=== PATIENT | female | born 1955 | race Caucasian/White ===

== ENCOUNTER 2020-09-02 09:18 | Observation (INO) ==
[2020-09-02] MEDS ORDERED: *HR* Promethazine 25 MG/ML VIAL IVP ONE (09:50)
[2020-09-02] MEDS ORDERED: 0.9 % Sodium Chloride 1,000 ML IVC ONE (09:50)
[2020-09-02] MEDS ORDERED: *HR* FentaNYL (PF) 100 MCG/2 ML VIAL IVP ONE ×2 (09:54→12:06)
[2020-09-02 10:21] LABS: Basophils % 0.1 %; Eosinophils % 0.1 %; Hematocrit 36.3 % (35.3-44.9); Hemoglobin 12.4 g/dL (11.5-15.4); Immature Granulocytes % 0.3 % (0-4); Lymphocytes # 1.1 K/mcL (0.6-4.6); Lymphocytes % 9.3 %; Mean Corpuscular HGB Conc 34.2 g/dL (31.6-35.5); Mean Corpuscular Hemoglobin 30.4 pg (28.0-33.3); Mean Platelet Volume 9.7 fL (9.4-12.4); Monocytes # 1.3 K/mcL (0.0-1.3); Monocytes % 11.4 %; Neutrophils # 9.2 K/mcL (1.6-8.9); Platelet Count 275 K/mcL (140-400); Red Blood Count 4.08 M/mcL (3.82-4.97); Segmented Neutrophils % 78.8 %; White Blood Count 11.6 K/mcL (4.3-11.1)
[2020-09-02 10:32] LABS: Bacteria,Urine Few per hpf (None-Few); Bilirubin,Urine Negative (Negative); Blood,Urine Small (Negative); Clarity,Urine Clear (Clear); Color,Urine Colorless (Yellow); Glucose,Urine (UA) Normal (Normal); Ketones,Urine 10 mg/dL (Negative); Leukocyte Esterase,Urine Negative (Negative); Nitrite,Urine Negative (Negative); Protein,Urine Negative (Neg-Trace); RBC,Urine 0-3 per hpf (0-3); Urobilinogen,Urine Normal (Normal); WBC,Urine 0-3 per hpf (0-3)
[2020-09-02 10:40] LABS: Alanine Aminotransferase 15 Units/L (7-52); Albumin 4.5 g/dL (3.5-5.7); Albumin/Globulin Ratio 1.8 (1.1-2.2); Alkaline Phosphatase 55 Units/L (34-104); Aspartate Amino Transferase 11 Units/L (13-39); BUN/Creatinine Ratio 16 (6-26); Bilirubin,Direct 0.1 mg/dL (0.0-0.2); Bilirubin,Indirect 0.7 mg/dL (0.0-1.0); Bilirubin,Total 0.8 mg/dL (0.3-1.0); Blood Urea Nitrogen 18 mg/dL (8-23); Calcium 9.9 mg/dL (8.6-10.3); Carbon Dioxide 21 mEq/L (23-29); Chloride 105 mEq/L (98-107); Globulin 2.5 g/dL (2.4-3.5); Glucose 212 mg/dL (70-105); Lipase 13 Units/L (11-82); Osmolality,Calculated 296 (280-300); Potassium 3.7 mEq/L (3.5-5.1); Sodium 139 mEq/L (136-145); eGFR For African Americans > 60 (> 60); eGFR For Non-African Americans 50 (> 60)
[2020-09-02] MEDS ORDERED: Ondansetron 4 MG/2 ML VIAL IVP PRN (12:28)
[2020-09-02] MEDS ORDERED: Acetaminophen 325 MG TABLET PO PRN (12:28)
[2020-09-02] MEDS ORDERED: *HR* FentaNYL (PF) 100 MCG/2 ML VIAL IVP PRN (13:56)
[2020-09-02] MEDS ORDERED: Ringers Solution, Lactated 1,000 ML IVC ONE (13:56)
[2020-09-02] MEDS ORDERED: D5% in Water 1,000 ML IVC PRN (13:57)
[2020-09-02] MEDS ORDERED: Dextrose Gel 15 GM/37.5 ML TUBE PO PRN ×2 (13:57)
[2020-09-02] MEDS ORDERED: *HR* Dextrose 50 % in Water (Vial) 50 ML VIAL IVP PRN (13:57)
[2020-09-02 16:26] LABS: Adenovirus Not Detected (Not Detect); Bordetella Pertussis Not Detected (Not Detect); Chlamydophila pneumoniae Not Detected (Not Detect); Coronavirus 229E Not Detected (Not Detect); Coronavirus HKU1 Not Detected (Not Detect); Coronavirus NL63 Not Detected (Not Detect); Coronavirus OC43 Not Detected (Not Detect); Human Metapneumovirus Not Detected (Not Detect); Human Rhinovirus/Enterovirus Not Detected (Not Detect); Influenza A Subtype 2009 H1 Not Detected (Not Detect); Influenza B Not Detected (Not Detect); Mycoplasma pneumoniae Not Detected (Not Detect); Parainfluenza Virus 1 Not Detected (Not Detect); Parainfluenza Virus 2 Not Detected (Not Detect); Parainfluenza Virus 3 Not Detected (Not Detect); Parainfluenza Virus 4 Not Detected (Not Detect); Respiratory Syncytial Virus Not Detected (Not Detect); SARS-CoV-2 Not Detected (Not Detect)
[2020-09-02] MEDS: *HR* OxyCODONE Immed Rel 5 MG TABLET PO PRN (17:15)
[2020-09-02] MEDS: Insulin LISPRO 300 UNITS/3 ML VIAL SQ SCH (18:23)
[2020-09-02] MEDS: *HR* Promethazine 25 MG/ML VIAL IVP PRN (20:01)
[2020-09-02] MEDS ORDERED: Insulin LISPRO 300 UNITS/3 ML VIAL SQ SCH (21:00)
[2020-09-02] MEDS: cefTRIAXone 1,000 MG in 0.9 % Sodium Chloride Mini Bag 100 ML IVPB SCH (22:28)
[2020-09-03] MEDS: *HR* OxyCODONE Immed Rel 5 MG TABLET PO PRN (02:53)
[2020-09-03] MEDS: *HR* Promethazine 25 MG/ML VIAL IVP PRN (03:29)
[2020-09-03 04:49] LABS: Hematocrit 33.3 % (35.3-44.9); Hemoglobin 10.7 g/dL (11.5-15.4); Mean Corpuscular HGB Conc 32.1 g/dL (31.6-35.5); Mean Corpuscular Volume 93.3 fL (83.0-100.0); Mean Platelet Volume 9.9 fL (9.4-12.4); Platelet Count 240 K/mcL (140-400); Red Blood Count 3.57 M/mcL (3.82-4.97); White Blood Count 9.9 K/mcL (4.3-11.1)
[2020-09-03 05:08] LABS: BUN/Creatinine Ratio 15 (6-26); Blood Urea Nitrogen 15 mg/dL (8-23); Calcium 9.1 mg/dL (8.6-10.3); Carbon Dioxide 22 mEq/L (23-29); Chloride 106 mEq/L (98-107); Glucose 172 mg/dL (70-105); Osmolality,Calculated 291 (280-300); Potassium 3.6 mEq/L (3.5-5.1); Sodium 138 mEq/L (136-145); eGFR For African Americans > 60 (> 60); eGFR For Non-African Americans 57 (> 60)
[2020-09-03] MEDS ORDERED: *HR* Enoxaparin 40 MG/0.4 ML SYRINGE SQ SCH (06:00)
[2020-09-03] MEDS: Insulin LISPRO 300 UNITS/3 ML VIAL SQ SCH (07:30)
[2020-09-03] MEDS: cefTRIAXone 1,000 MG in 0.9 % Sodium Chloride Mini Bag 100 ML IVPB SCH (10:59)
[2020-09-03] MEDS ORDERED: *HR* HYDROmorphone PF 0.5 MG/0.5 ML SYRINGE IVP PRN (11:41)
[2020-09-03] MEDS ORDERED: Acetaminophen IV 1,000 MG/100 ML INFUS..BTL IVPB ONE (12:12)
[2020-09-03] MEDS ORDERED: *HR* Propofol 200 MG/20 ML VIAL IVP ONE (12:17)
[2020-09-03] MEDS ORDERED: *HR* FentaNYL (PF) 100 MCG/2 ML VIAL ONE (12:17)
[2020-09-03] MEDS ORDERED: *HR* Midazolam HCl 2 MG/2 ML VIAL ONE (12:17)
[2020-09-03] MEDS ORDERED: Lidocaine -MPF 2% 2 ML VIAL ONE (12:18)
[2020-09-03] MEDS ORDERED: Ondansetron 4 MG/2 ML VIAL ONE (12:18)
[2020-09-03] MEDS ORDERED: Dexamethasone 4 MG/ML VIAL ONE (12:18)
[2020-09-03] MEDS ORDERED: Isovue-300 50ML VIAL ONE (12:24)
[2020-09-03 13:41] VITALS: BP 138/74
[2020-09-03] MEDS ORDERED: *HR* FentaNYL (PF) 100 MCG/2 ML VIAL IVP PRN (14:17)
[2020-09-03] MEDS ORDERED: D5% in Water 1,000 ML IVC PRN (14:17)
[2020-09-03] MEDS ORDERED: *HR* Promethazine 25 MG/ML VIAL IVP PRN (14:17)
[2020-09-03] MEDS ORDERED: *HR* OxyCODONE Immed Rel 5 MG TABLET PO PRN (14:17)
[2020-09-03] MEDS ORDERED: Dextrose Gel 15 GM/37.5 ML TUBE PO PRN ×2 (14:17)
[2020-09-03] MEDS ORDERED: *HR* Belladonna Alkaloids/Opium 30 MG RECTAL SUPPOSITORY RC PRN (14:17)
[2020-09-03] MEDS ORDERED: Ondansetron 4 MG/2 ML VIAL IVP PRN (14:17)
[2020-09-03] MEDS ORDERED: *HR* Dextrose 50 % in Water (Vial) 50 ML VIAL IVP PRN (14:17)
[2020-09-03] MEDS ORDERED: Insulin LISPRO 300 UNITS/3 ML VIAL SQ SCH ×2 (16:30→21:00)
[2020-09-04] MEDS ORDERED: *HR* Enoxaparin 40 MG/0.4 ML SYRINGE SQ SCH (06:00)
[2020-09-04] MEDS ORDERED: cefTRIAXone 1,000 MG in 0.9 % Sodium Chloride Mini Bag 100 ML IVPB SCH (09:00)
[2020-09-08 16:18] LABS: Calculi Mass 15 mg
== END 2020-09-03 18:23 | disposition home or self-care (01) ==
LOC: EMEROOARM 09:18 → 3BNU 09:18
PROVIDERS: ADMIT Internal Medicine; ATTEND Internal Medicine